=== PATIENT | male | born 1980 | race African-American/Black ===

== ENCOUNTER 2019-05-10 21:32 | Emergency (ER) | payer OTHER ==
[~2019-05-10] VITALS: Ht 190.5 cm; Wt 78.0 kg
[~2019-05-10 21:32] MED LIST: ACETAMINOPHEN-1 EAC1 PO
[2019-05-10 22:18] LABS: INFLUENZA A ANTIGEN Negative (Negative); INFLUENZA B ANTIGEN Negative (Negative)
[2019-05-10 22:35] VITALS: BP 122/82
== END 2019-05-10 23:20 | disposition home or self-care (01) ==
LOC: M.ERS 21:32
PROVIDERS: Nurse Practitioner Family
DX: R05 Cough (principal)